=== PATIENT | male | born 2000 | race Caucasian/White ===

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

== ENCOUNTER 2023-06-24 09:45 | Emergency (ER) | payer OTHER, BC ==
[~2023-06-24 09:45] MED LIST: Sodium Chloride 0.9% 10 ML Syringe FLUSH PRN
[2023-06-24 10:01] LABS: BASOPHILS ABSOLUTE AUTO 0.02 K/uL (0.00-0.20); BASOPHILS PERCENT AUTO 0.2 % (0.0-2.0); EOSINOPHILS ABSOLUTE AUTO 0.08 K/uL (0.00-0.50); EOSINOPHILS PERCENT AUTO 0.7 % (0.0-5.0); HEMATOCRIT 38.7 % (39.0-49.0); HEMOGLOBIN 12.9 g/dL (13.1-16.8); LYMPHOCYTES ABSOLUTE AUTO 0.71 K/uL (0.50-3.50); MEAN CORPUSCULAR HEMOGLOBIN 27.1 pg (28.2-33.3); MEAN CORPUSCULAR HGB CONC 33.3 g/dL (31.7-36.0); MEAN CORPUSCULAR VOLUME 81.3 fL (84.0-98.0); MONOCYTES ABSOLUTE AUTO 0.77 K/uL (0.00-1.00); MONOCYTES PERCENT AUTO 6.5 % (2.0-14.0); NEUTROPHILS ABSOLUTE AUTO 10.34 K/uL (1.40-7.00); NEUTROPHILS PERCENT AUTO 86.6 % (45.0-80.0); PLATELET COUNT,PLT 225 K/uL (150-350); RED BLOOD CELL COUNT 4.76 M/uL (4.33-5.41); RED CELL DISTRIBUTION WIDTH 17.5 % (11.2-14.1); WHITE BLOOD CELL COUNT,WBC 11.9 K/uL (4.0-10.2)
[2023-06-24 10:27] LABS: ALBUMIN 4.6 g/dL (3.4-5.0); ANION GAP 7.2 meq/L (7-15); CALCIUM 8.7 mg/dL (8.5-10.1); CARBON DIOXIDE,CO2 27.8 mmol/L (21.0-32.0); CREATININE 1.09 mg/dL (0.51-1.17); EST CRCL DRUG DOSING (CG) 91.69 mL/min; POTASSIUM,K 4.1 mmol/L (3.5-5.1); PROTEIN TOTAL,TP 7.9 g/dL (6.4-8.2)
[2023-06-24 10:35] LABS: INR 1.2 (0.9-1.1); PROTHROMBIN TIME 11.7 SEC (9.0-11.1)
[2023-06-24 10:44] LABS: CORONAVIRUS COVID-19 NAA NEGATIVE (NEGATIVE); INFLUENZA A NAA NEGATIVE (NEGATIVE); INFLUENZA B NAA NEGATIVE (NEGATIVE); RESPIRATORY SYNCYTIAL VIR NAA POSITIVE (NEGATIVE)
[2023-06-24 11:22] VITALS: BP 123/76; PULSE 105
== END 2023-06-24 11:15 | disposition home or self-care (01) ==
LOC: LL.ED 09:45
DX: J22 Unspecified acute lower respiratory infection (principal); Z20.822 Contact with and (suspected) exposure to COVID-19; I10 Essential (primary) hypertension; I25.10 Atherosclerotic heart disease of native coronary artery without angina pectoris; Z88.0 Allergy status to penicillin
CPT/HCPCS: 0241U; 36415; 71046; 80053; 84484; 85025; 85379; 85610; 93005; 99285

== ENCOUNTER 2024-09-20 19:58 | Emergency (ER) | payer BC, OTHER ==
[2024-09-20 20:19] VITALS: PULSE 79
[2024-09-20 20:36] VITALS: BP 115/73
== END 2024-09-20 20:50 | disposition home or self-care (01) ==
LOC: LL.ED 19:58
DX: R09.89 Other specified symptoms and signs involving the circulatory and respiratory systems (principal); F17.210 Nicotine dependence, cigarettes, uncomplicated; Z88.0 Allergy status to penicillin
CPT/HCPCS: 71046; 99283